=== PATIENT | male | born 1935 ===

== ENCOUNTER 2022-07-06 18:01 | Emergency (ER) | payer BC, MEDICARE, OTHER ==
[~2022-07-06] VITALS: Ht 175.3 cm; Wt 86.2 kg
[2022-07-06] MEDS ORDERED: EZET10TA32 PO (18:22)
[2022-07-06] MEDS ORDERED: CLOP75TA15 PO (18:22)
[2022-07-06] MEDS ORDERED: LOSA1TAB39 PO (18:22)
[2022-07-06] MEDS ORDERED: METF-440 PO (18:22)
[2022-07-06] MEDS ORDERED: METO-356 PO (18:22)
[2022-07-06] MEDS ORDERED: NITR0.4T48 SL (18:22)
[2022-07-06] MEDS ORDERED: NITROGLYCERIN 0.4 MG/TAB BOTTLE SL ONE ×2 (18:30→18:36)
[2022-07-06] MEDS ORDERED: ASPIRIN 81 MG TAB.CHEW PO ONE (18:30)
[2022-07-06] MEDS ORDERED: NITROGLYCERIN OINT 1 GM PACKET TP ONE ×2 (18:30→18:36)
[2022-07-06] MEDS ORDERED: ASPIRIN 81 MG TAB.CHEW ONE (18:36)
[2022-07-06] MEDS ORDERED: METOPROLOL TARTRATE 5 MG/5 ML VIAL IVP ONE ×4 (18:52→21:28)
[2022-07-06 19:11] LABS: *BILIRUBIN,URIN NEGATIVE (NEGATIVE); *BLOOD, URINE NEGATIVE (NEGATIVE); *CLARITY,URINE CLEAR (CLEAR); *COLOR,URINE YELLOW (YELLOW); *KETONES,URINE NEGATIVE (NEGATIVE); *UROBILINOGEN,URINE 0.2 E.U./dl (NORMAL); LEUKOCYTE ESTERASE ,URINE NEGATIVE (NEGATIVE); NITRITE, URINE NEGATIVE (NEGATIVE); PH,URINE 6.5 (5.0-8.0); UGLUCOSE 1+ (NEGATIVE)
[2022-07-06 19:15] LABS: HEMATOCRIT 32.6 % (36.7-47.1); MEAN CORPUSCULAR HEMOGLOBIN 20.7 uug (23.8-33.4); MEAN CORPUSCULAR VOLUME 67.3 fL (73.0-96.2); PLATELET COUNT (AUTO) 288 K/uL (152-348)
[2022-07-06 19:27] LABS: CREATININE 1.2 mg/dL (0.6-1.3); POTASSIUM 3.9 mmol/L (3.5-5.1)
[2022-07-06 19:33] LABS: BILIRUBIN,DIRECT 0.2 mg/dL (0.0-0.2); BILIRUBIN,TOTAL 0.9 mg/dL (0.2-1.0)
--- NOTE | 2022-07-06 20:22 | NUR ---
Called [facility] and spoke to house piping inspector Bindu GARCIA for patient transfer per Dr. Valero. Waiting for call back for bed assignment.
[2022-07-06] MEDS ORDERED: HEPARIN/D5W DRIP 500 ML IV PRN (20:30)
[2022-07-06] MEDS ORDERED: LORAZEPAM 2 MG/1 ML VIAL ONE (21:28)
[2022-07-06 21:30] VITALS: BP 166/75
[2022-07-06] MEDS ORDERED: LORAZEPAM 2 MG/1 ML VIAL IV ONE (21:30)
--- NOTE | 2022-07-06 21:58 | NUR ---
Per Digital Ad[employer] Analyst at [facility]. Patient has been admitted to [facility] bed 114 bed 2
[2022-07-06] MEDS ORDERED: ACETAMINOPHEN ES 500 MG TABLET PO ONE (22:00)
[2022-07-06] MEDS ORDERED: ACETAMINOPHEN ES 500 MG TABLET ONE (22:12)
--- NOTE | 2022-07-06 22:19 | NUR ---
Called [facility] for [facility] transport, eta [id number].
--- NOTE | 2022-07-06 22:34 | NUR ---
Heparin drip form paper faxed over to pharmacy.
--- NOTE | 2022-07-06 22:34 | NUR ---
Dr. Navas on panel call with Dr. Baker
[2022-07-06] MEDS ORDERED: HEPARIN/D5W DRIP 500 ML ONE (23:20)
[2022-07-07] MEDS ORDERED: HALOPERIDOL LACTATE 5 MG/1 ML VIAL IV ONE
--- NOTE | 2022-07-07 | NUR ---
Patient becoming anxious and attempting to get up without help. Dr. Navas notified. Haldol 5mg IV order.
[2022-07-07] MEDS ORDERED: HALOPERIDOL LACTATE 5 MG/1 ML VIAL ONE (00:02)
--- NOTE | 2022-07-07 00:14 | NUR ---
Heparin drip started and infusing at 1200 units/hr. Co-signed with Jose Guadalupe GARCIA.
--- NOTE | 2022-07-07 01:04 | NUR ---
Heparin drip stopped per Dr. Navas due to ambulance transfer. Per Dr. Navas, heparin drip will be restarted once patient arrives to [facility].
--- NOTE | 2022-07-07 01:05 | NUR ---
Patient picked up by [facility]que[facility] via [facility] with personal belongings. Patient in stable conditions, no signs of distress noted. Daughter at bedside.
--- NOTE | 2022-07-07 01:06 | NUR ---
Patient Tranfers to outside Facility Physician: Dr. Muniz/ Dr. Baker Location: [address].
--- NOTE | 2022-07-07 01:23 | NUR ---
Report given to Marv GARCIA at [facility]. Addendum: 07/07/22 at 0232 by NICCI Spoke with Marv GARCIA at [facility] to notify Heparin drip has been stopped and will need to be started once patient arrives.
== END 2022-07-07 01:23 | disposition short-term general hospital (02) ==
LOC: ER 18:03
DX: I21.4 Non-ST elevation (NSTEMI) myocardial infarction (principal); I16.0 Hypertensive urgency; E11.65 Type 2 diabetes mellitus with hyperglycemia; R41.89 Other symptoms and signs involving cognitive functions and awareness; Z79.01 Long term (current) use of anticoagulants; Z79.899 Other long term (current) drug therapy; Z20.822 Contact with and (suspected) exposure to COVID-19
CPT/HCPCS: 99291; 70450; 96375 ×2; 87426; 80076; 80048; 81003; 83880; 85025; 85379; 85730; 84484 ×3; 36415; 93005; 71045; 72125; 96376; 96365; J1644; J2060; J3490 ×2; J1630; A4663; A9150